=== PATIENT | male | born 1990 | race Caucasian/White ===

== ENCOUNTER 2020-07-06 16:13 | Emergency (ER) | payer BC, SELFPAY ==
[2020-07-06] MEDS ORDERED: Mag-Al Plus 1200 MG/1200 MG/120 MG/30 ML UDCUP ONE (16:34)
== END 2020-07-06 16:59 | disposition home or self-care (01) ==
LOC: BURERS 16:13
DX: R07.9 Chest pain, unspecified (principal); F17.220 Nicotine dependence, chewing tobacco, uncomplicated